=== PATIENT | female | born 1940 | race Caucasian/White ===

== ENCOUNTER 2016-11-03 02:09 | Observation (INO) | payer MEDICARE, BC ==
[~2016-11-03 02:09] MED LIST: ADULT LOW DOSE81 M1 PO; ANASTROZOLE1 MG PO; ARIMIDEX1 M1 PO; ASPIR-LOW81 M1 PO; ASPIR-TRIN325 M2 PO; BABY ASPIRIN81 MG PO; BETAGAN5 ML OP; BRIMONIDINE TART5 M1 OP; CALCIUM 500 +1 EAC3 PO; EQL FISH OIL 1,1 CA1 PO; FOSAMAX70 MG PO; LATANOPROST2.5 ML OP; LEVOTHROID75 MCG PO; LOSARTAN-HCTZ1 EAC2 PO; METOPROLOL TART25 M1 PO; MULTI VITAMIN1 EAC1 PO; NORCO 5-325 TA1 EACH PO; PACERONE200 M1 PO; PAROXETINE HCL20 M1 PO; SENOKOT-S TABL1 EACH PO; SIMVASTATIN20 M1 PO; SIMVASTATIN40 MG PO; TRAVATAN 0.0042.5 ML OP; TYLENOL325 M1 PO; TYLENOL325 M2 PO; VITAMIN D400 UNI1 PO; XARELTO10 M1 PO; XARELTO20 M1 PO
[2016-11-03] MEDS ORDERED: SYNTHROID125 MC1 PO (02:39)
[2016-11-03] MEDS ORDERED: BETAPACE80 M2 PO (02:40)
[2016-11-03] MEDS ORDERED: OMEPRAZOLE40 M2 PO (02:41)
[2016-11-03] MEDS ORDERED: OS-CAL 500+D31 EAC1 PO (02:42)
[2016-11-03] MEDS ORDERED: FLUOXETINE HCL20 M3 PO (02:43)
[2016-11-03] MEDS ORDERED: FLUDROCORTISON0.1 M1 PO (02:45)
[2016-11-03] MEDS ORDERED: VITAMIN D31000 UNI3 PO ×2 (02:46→02:59)
[2016-11-03] MEDS ORDERED: WELLBUTRIN XL150 M1 PO (02:46)
[2016-11-03] MEDS ORDERED: VITAMIN D31000 UNI3 (02:47)
[2016-11-03] MEDS ORDERED: CALCIUM + D3 E1 EAC2 PO (02:50)
[2016-11-03 02:58] LABS: BASO % 0.3 % (0-2); EOS % 2.7 % (0-7); EOSINOPHIL ABSOLUTE COUNT 0.2 tho/cmm (0.0-0.7); HCT-HEMATOCRIT 38.4 % (34.0-49.0); HGB-HEMOGLOBIN 13.1 gm/dl (12.0-15.5); IMMATURE GRANULOCYTES ABSOLUTE 0.02 tho/cmm (0-0.03); IMMATURE GRANULOCYTES PERCENT 0.3 % (0-0.3); LYMPH % 18.1 % (20-45); LYMPH ABSOLUTE COUNT 1.2 tho/cmm (0.8-4.5); MCH (MEAN CORPUSCULAR HGB) 32.7 pg (28.0-32.0); MCHC MEAN CORPUSCULAR HGB CONC 34.1 % (32.0-36.0); MCV (MEAN CELL VOLUME) 95.8 fl (82.0-96.0); MEAN PLATELET VOLUME 9.9 cmc (9.4-12.4); MONO % 11.5 % (0-12); MONOCYTE ABSOLUTE COUNT 0.8 tho/cmm (0.0-1.2); NEUTROPHIL ABSOLUTE COUNT 4.6 tho/cmm (1.6-8.0); NEUTROPHIL-AUTOMATED 4.6 tho/cmm (1.6-8.0); NEUTROPHILS % 67.1 % (40-80); PLATELET COUNT 253 tho/cmm (150-450); RED BLOOD COUNT 4.01 mil/cmm (4.00-5.20); RED CELL DISTRIBUTION WIDTH 12.8 % (12.4-16.4); WHITE BLOOD COUNT 6.8 tho/cmm (4.0-10.0)
[2016-11-03] MEDS ORDERED: PRADAXA150 M1 PO (02:59)
[2016-11-03 03:19] LABS: ALBUMIN 3.6 g/dl (3.5-5.0); ALKALINE PHOSPHATASE 75 U/L (33-138); ALT/SGPT 21 U/L (12-78); ANION GAP 11 mmol/L (0-20); AST/SGOT 19 U/L (10-40); BILIRUBIN,TOTAL 0.3 mg/dl (0-1.5); BLOOD UREA NITROGEN 23 mg/dl (6-24); CALCIUM 8.7 mg/dl (8.5-10.5); CARBON DIOXIDE-VENOUS 27 mmol/L (22-32); CHLORIDE 105 mmol/l (96-110); CREATININE 1.21 mg/dl (0.50-1.10); GLUCOSE 95 mg/dL (70-110); LIPASE 206 U/L (73-393); MAGNESIUM 1.9 mg/dl (1.3-2.6); SODIUM 139 mmol/L (135-145); eGFR VALUE FOR BLACK 50 mL/Min
[2016-11-03] MEDS ORDERED: SUCRALFATE1 GM PO (15:09)
== END 2016-11-03 15:49 ==
LOC: EDMED 02:09 → EMR2 03:59 → 5WD 04:45
PROVIDERS: Emergency Medicine; ADMIT Internal Medicine
DX: R07.9 Chest pain, unspecified (principal); I48.0 Paroxysmal atrial fibrillation; I10 Essential (primary) hypertension; E78.5 Hyperlipidemia, unspecified; K21.9 Gastro-esophageal reflux disease without esophagitis; Z88.2 Allergy status to sulfonamides; Z79.899 Other long term (current) drug therapy; Z82.49 Family history of ischemic heart disease and other diseases of the circulatory system; Z85.3 Personal history of malignant neoplasm of breast; Z98.890 Other specified postprocedural states
CPT/HCPCS: A9500; G0378; J2405; J2785; J7030